=== PATIENT | female | born 1980 | race Caucasian/White ===

== ENCOUNTER 2017-01-04 18:05 | Emergency (ER) | payer MEDICAID ==
[2017-01-04] MEDS ORDERED: NO HOME MEDICATION XX (18:32)
[2017-01-04] MEDS ORDERED: CYCLOBENZAPRINE10 M1 PO (18:54)
[2017-01-04] MEDS ORDERED: PREDNISONE10 M1 PO (18:54)
== END 2017-01-04 20:20 ==
LOC: EDMED 18:05
DX: M54.12 Radiculopathy, cervical region (principal)
CPT/HCPCS: J1100